=== PATIENT | male | born 1945 | race Caucasian/White ===

== ENCOUNTER → 2021-02-22 | Outpatient (CLI) | payer MEDICARE ==
[2021-02-22 17:25] LABS: HEMOGLOBIN 13.4 gm/dl (14.0-17.5); RED BLOOD COUNT 4.71 M/UL (4.20-5.50); WHITE BLOOD COUNT 7.2 K/UL (4.5-11.0)
[2021-02-22 17:38] LABS: BUN/CREATININE RATIO 12 (0-10)
[2021-02-24 10:14] LABS: HCV AB <0.1 (0.0-0.9)
[2021-02-24 11:14] LABS: HBSAG SCREEN Negative (Negative); HEP B CORE AB, TOT Negative (Negative); RHEUMATOID ARTHRITIS FACTOR <10.0 IU/mL (0.0-13.9)
[2021-02-25 00:10] LABS: CCP ANTIBODIES IGG/IGA 1 units (0-19)
[2021-02-25 05:10] LABS: QUANTIFERON MITOGEN VALUE >10.00 IU/mL (.); QUANTIFERON-TB GOLD PLUS Negative (Negative)
[2021-03-04 19:09] LABS: HLA B 27 DISEASE ASSOCIATION Negative (.)
== END ==
LOC: LAB 16:13
PROVIDERS: Internal Medicine
DX: M45.9 Ankylosing spondylitis of unspecified sites in spine (principal); M25.50 Pain in unspecified joint; M46.1 Sacroiliitis, not elsewhere classified; Z11.59 Encounter for screening for other viral diseases; M19.90 Unspecified osteoarthritis, unspecified site; Z79.899 Other long term (current) drug therapy
CPT/HCPCS: 36415; 72202; 80053; 81374; 83520; 85025; 85652; 86140; 86200; 86431; 86704; 86803; 87340